=== PATIENT | male | born 1960 | race Hispanic/Latino ===

== ENCOUNTER 2025-05-14 12:25 | Emergency (ER) | payer MEDICARE, OTHER ==
[2025-05-14 13:18] LABS: Bacteria/HPF None Seen HPF (None Seen); CAUTI Indications for Culture Pelvic or flank pain; Glucose, Urine (Dipstick) Normal (Negative); Leukocyte Negative Leu/uL (Negative); Protein, Urine (Dipstick) Negative (Neg-Trace); RBC/HPF 0-3 HPF (0-3); Specific Gravity, Urine 1.015 (1.002-1.036); WBC/HPF 0-3 HPF (0-3)
[2025-05-14 13:19] LABS: Urine Culture Reflex No No
[2025-05-14 13:29] LABS: #Basophils 0.03 10x3/uL (0.0-0.2); #Eosinophils 0.13 10x3/uL (0.0-0.7); #Monocytes 0.96 10x3/uL (0.11-0.59); #Neutrophils 9.56 10x3/uL (1.40-6.50); %Basophils 0.2 % (0.0-1.0); %Eosinophils 1.0 % (0.0-10.0); %Lymphocytes 16.2 % (21.0-51.0); %Monocytes 7.5 % (0.0-10.0); %Neutrophils 74.6 % (42.0-75.0); Hematocrit 37.2 % (42.0-52.0); Hemoglobin 12.9 g/dL (14.0-18.0); Mean Corpuscular Hemoglobin 33.8 pg (27.0-31.0); Mean Corpuscular Volume 97.4 fL (78.0-98.0); Platelet Count 168 10x3/uL (130-400); Red Blood Cell (RBC) Count 3.82 mill/uL (4.70-6.10); White Blood Cell (WBC) Count 12.81 10x3/uL (4.8-10.8)
[2025-05-14 13:47] LABS: ALT (SGPT) 57 U/L (Less than 45); AST (SGOT) 45 U/L (11-34); Albumin 4.1 g/dL (3.1-4.5); Alkaline Phosphatase 81 U/L (40-110); Anion Gap 13 mmol/L (10-20); BUN (Urea Nitrogen) 16 mg/dL (8.4-25.7); Bilirubin, Total 1.2 mg/dL (0.3-1.2); Calc. Creatinine Clearance 0 mL/min (70-130); Calcium 8.9 mg/dL (7.8-10.44); Carbon Dioxide 21 mmol/L (23-31); Chloride 107 mmol/L (98-107); Globulin 3.7 g/dL (2.4-3.5); Glucose 125 mg/dL (80-115); Potassium 3.7 mmol/L (3.5-5.1); Sodium 137 mmol/L (136-145)
[2025-05-14] MEDS ORDERED: Ondansetron PF 4 MG/2 ML Vial ONE (14:44)
[2025-05-14] MEDS ORDERED: Iopamidol 370 76% 100 ML VIAL ONE (14:51)
== END 2025-05-14 16:35 | disposition home or self-care (01) ==
LOC: ERS 12:25
DX: K57.90 Diverticulosis of intestine, part unspecified, without perforation or abscess without bleeding (principal); K21.9 Gastro-esophageal reflux disease without esophagitis; I10 Essential (primary) hypertension; Z55.6 Problems related to health literacy; Z87.891 Personal history of nicotine dependence; Z79.899 Other long term (current) drug therapy
CPT/HCPCS: 74177; 80053; 81001; 83690; 85025; J2270; J2405; 36415; 96374; 96375; 96376; Q9967

== ENCOUNTER 2025-06-21 15:25 | Inpatient (IN) | payer MEDICARE, OTHER ==
[~2025-06-21 15:25] MED LIST: Iopamidol-370 76% 500 ML MDV (1 ML CHARGE) ONE
[2025-06-21 17:32] LABS: #Basophils 0.03 10x3/uL (0.0-0.2); #Eosinophils Less than 0.03 10x3/uL (0.0-0.7); #Monocytes 1.21 10x3/uL (0.11-0.59); #Neutrophils 15.38 10x3/uL (1.40-6.50); %Basophils 0.2 % (0.0-1.0); %Eosinophils 0.1 % (0.0-10.0); %Lymphocytes 11.2 % (21.0-51.0); %Monocytes 6.4 % (0.0-10.0); %Neutrophils 81.5 % (42.0-75.0); Hematocrit 41.4 % (42.0-52.0); Hemoglobin 14.4 g/dL (14.0-18.0); Mean Corpuscular Hemoglobin 33.0 pg (27.0-31.0); Mean Corpuscular Volume 94.7 fL (78.0-98.0); Platelet Count 157 10x3/uL (130-400); Red Blood Cell (RBC) Count 4.37 mill/uL (4.70-6.10); White Blood Cell (WBC) Count 18.86 10x3/uL (4.8-10.8)
[2025-06-21] MEDS ORDERED: Ondansetron PF 4 MG/2 ML Vial ONE ×2 (17:34→19:36)
[2025-06-21 17:45] LABS: ALT (SGPT) 71 U/L (Less than 45); AST (SGOT) 47 U/L (11-34); Albumin 4.2 g/dL (3.1-4.5); Alkaline Phosphatase 73 U/L (40-110); Anion Gap 16 mmol/L (10-20); BUN (Urea Nitrogen) 24 mg/dL (8.4-25.7); Bilirubin, Total 1.8 mg/dL (0.3-1.2); Calc. Creatinine Clearance 0 mL/min (70-130); Calcium 9.5 mg/dL (7.8-10.44); Carbon Dioxide 18 mmol/L (23-31); Chloride 105 mmol/L (98-107); Globulin 3.8 g/dL (2.4-3.5); Glucose 119 mg/dL (80-115); Lipase 40 U/L (8-78); Potassium 3.6 mmol/L (3.5-5.1); Sodium 135 mmol/L (136-145)
[2025-06-21] MEDS ORDERED: HYDROmorphone 0.5 MG/0.5 ML SYRINGE ONE (19:36)
[2025-06-21] MEDS ORDERED: Ketorolac Tromethamine 30 MG (1 mL) VIAL ONE (19:36)
[2025-06-21 19:37] LABS: Bacteria/HPF None Seen HPF (None Seen); CAUTI Indications for Culture Pelvic or flank pain; Glucose, Urine (Dipstick) Normal (Negative); Leukocyte Negative Leu/uL (Negative); Protein, Urine (Dipstick) 20 mg/dL (Neg-Trace); RBC/HPF 0-3 HPF (0-3); WBC/HPF 0-3 HPF (0-3)
[2025-06-21 19:50] LABS: Specific Gravity, Urine Greater than 1.050 (1.002-1.036)
[2025-06-21 19:52] LABS: Urine Culture Reflex No No
[2025-06-21] MEDS ORDERED: Ondansetron PF 4 MG/2 ML Vial IVP PRN (22:34)
[2025-06-21] MEDS ORDERED: Calcium Carbonate 500 MG ChewTAB PO PRN (22:34)
[2025-06-21 23:47] VITALS: BMI 26.3
[2025-06-21] MEDS: Acetaminophen 325 MG TAB PO PRN (23:58)
[2025-06-22 05:34] LABS: #Basophils Less than 0.03 10x3/uL (0.0-0.2); #Eosinophils Less than 0.03 10x3/uL (0.0-0.7); #Monocytes 0.60 10x3/uL (0.11-0.59); #Neutrophils 12.00 10x3/uL (1.40-6.50); %Basophils 0.1 % (0.0-1.0); %Eosinophils 0.1 % (0.0-10.0); %Lymphocytes 8.0 % (21.0-51.0); %Monocytes 4.3 % (0.0-10.0); %Neutrophils 86.9 % (42.0-75.0); Hematocrit 34.9 % (42.0-52.0); Hemoglobin 12.2 g/dL (14.0-18.0); Mean Corpuscular Hemoglobin 33.2 pg (27.0-31.0); Mean Corpuscular Volume 94.8 fL (78.0-98.0); Platelet Count 125 10x3/uL (130-400); Red Blood Cell (RBC) Count 3.68 mill/uL (4.70-6.10); White Blood Cell (WBC) Count 13.81 10x3/uL (4.8-10.8)
[2025-06-22 05:52] LABS: ALT (SGPT) 45 U/L (Less than 45); AST (SGOT) 30 U/L (11-34); Albumin 3.2 g/dL (3.1-4.5); Alkaline Phosphatase 55 U/L (40-110); Anion Gap 12 mmol/L (10-20); BUN (Urea Nitrogen) 22 mg/dL (8.4-25.7); Bilirubin, Total 2.2 mg/dL (0.3-1.2); Calc. Creatinine Clearance 36 mL/min (70-130); Calcium 8.3 mg/dL (7.8-10.44); Carbon Dioxide 20 mmol/L (23-31); Chloride 112 mmol/L (98-107); Globulin 2.6 g/dL (2.4-3.5); Glucose 96 mg/dL (80-115); Potassium 3.5 mmol/L (3.5-5.1); Sodium 140 mmol/L (136-145)
[2025-06-22 06:03] LABS: Platelet Adequacy Comment Platelets Decreased; RBC Morphology Within Normal Limits
[2025-06-22 09:03] LABS: INR-International Normal Ratio 1.1; Prothrombin Time 14.3 sec (12.0-14.7)
[2025-06-22 09:04] LABS: PTT 35.9 sec (22.9-36.1)
[2025-06-22] MEDS: PNEUMOC 20-VAL CONJ-DIP CRM/PF 0.5 ML SYRINGE IM ONE (12:15)
[2025-06-22] MEDS ORDERED: PROPOFOL 20 ML ONE (13:59)
[2025-06-22] MEDS ORDERED: Glycopyrrolate 0.2 MG/ML 5 ML SYRINGE ONE (14:00)
[2025-06-22] MEDS ORDERED: Ondansetron PF 4 MG/2 ML Vial ONE (14:00)
[2025-06-22] MEDS ORDERED: Lidocaine 1% PF 5 ML VIAL ONE (14:00)
[2025-06-22] MEDS ORDERED: PHENYLEPHRINE-NS 100 MCG/ML 10 ML SYRINGE ONE (14:17)
[2025-06-22 17:46] LABS: HIV (1/2) Antibody/Antigen NONREACTIVE (NonReactive); HIV 1/2 INDEX 0.04 S/CO (<1.00); Hep A IgM AB NONREACTIVE (NonReactive); Hep A IgM S/CO 0.81 S/CO (0-0.79); Hep B Core IgM Index 0.12 S/CO (0-0.79); Hep B Surf Ag NONREACTIVE S/CO (NonReactive); Hep C IgG Ab Reflex HepC Qnt S/CO (NonReactive); Hep C Index 17.20 S/CO (0-0.79)
[2025-06-22 21:09] LABS: Cocaine Metabolite Screen PRELIM POSITIVE (Negative); THC/Cannabinoid Screen Negative (Negative); Tricyclic Screen Negative (Negative)
[2025-06-23 05:31] LABS: #Basophils Less than 0.03 10x3/uL (0.0-0.2); #Eosinophils Less than 0.03 10x3/uL (0.0-0.7); #Monocytes 0.52 10x3/uL (0.11-0.59); #Neutrophils 10.89 10x3/uL (1.40-6.50); %Basophils 0.1 % (0.0-1.0); %Eosinophils 0.0 % (0.0-10.0); %Lymphocytes 5.6 % (21.0-51.0); %Monocytes 4.3 % (0.0-10.0); %Neutrophils 88.9 % (42.0-75.0); Hematocrit 33.3 % (42.0-52.0); Hemoglobin 11.3 g/dL (14.0-18.0); Mean Corpuscular Hemoglobin 33.0 pg (27.0-31.0); Mean Corpuscular Volume 97.4 fL (78.0-98.0); Platelet Count 122 10x3/uL (130-400); Red Blood Cell (RBC) Count 3.42 mill/uL (4.70-6.10); White Blood Cell (WBC) Count 12.23 10x3/uL (4.8-10.8)
[2025-06-23 05:50] LABS: ALT (SGPT) 34 U/L (Less than 45); AST (SGOT) 28 U/L (11-34); Albumin 2.8 g/dL (3.1-4.5); Alkaline Phosphatase 54 U/L (40-110); Anion Gap 11 mmol/L (10-20); BUN (Urea Nitrogen) 19 mg/dL (8.4-25.7); Bilirubin, Total 1.1 mg/dL (0.3-1.2); Calc. Creatinine Clearance 44 mL/min (70-130); Calcium 8.5 mg/dL (7.8-10.44); Carbon Dioxide 20 mmol/L (23-31); Chloride 110 mmol/L (98-107); Globulin 3.2 g/dL (2.4-3.5); Glucose 132 mg/dL (80-115); Magnesium 1.9 mg/dL (1.6-2.6); Potassium 3.8 mmol/L (3.5-5.1); Sodium 137 mmol/L (136-145)
[2025-06-23] MEDS ORDERED: Sodium Bicarbonate 2.5 MEQ/5 ML SDV ONE (09:11)
[2025-06-23] MEDS ORDERED: Lidocaine 1% PF 5 ML VIAL ONE (09:11)
[2025-06-24 05:37] LABS: #Basophils Less than 0.03 10x3/uL (0.0-0.2); #Eosinophils 0.06 10x3/uL (0.0-0.7); #Monocytes 0.60 10x3/uL (0.11-0.59); #Neutrophils 6.32 10x3/uL (1.40-6.50); %Basophils 0.1 % (0.0-1.0); %Eosinophils 0.7 % (0.0-10.0); %Lymphocytes 18.8 % (21.0-51.0); %Monocytes 6.9 % (0.0-10.0); %Neutrophils 73.0 % (42.0-75.0); Hematocrit 32.0 % (42.0-52.0); Hemoglobin 10.7 g/dL (14.0-18.0); Mean Corpuscular Hemoglobin 32.5 pg (27.0-31.0); Mean Corpuscular Volume 97.3 fL (78.0-98.0); Platelet Count 141 10x3/uL (130-400); Red Blood Cell (RBC) Count 3.29 mill/uL (4.70-6.10); White Blood Cell (WBC) Count 8.66 10x3/uL (4.8-10.8)
[2025-06-24 05:40] LABS: ALT (SGPT) 32 U/L (Less than 45); AST (SGOT) 34 U/L (11-34); Albumin 2.5 g/dL (3.1-4.5); Alkaline Phosphatase 46 U/L (40-110); Anion Gap 9 mmol/L (10-20); BUN (Urea Nitrogen) 20 mg/dL (8.4-25.7); Bilirubin, Total 0.6 mg/dL (0.3-1.2); Calc. Creatinine Clearance 50 mL/min (70-130); Calcium 8.2 mg/dL (7.8-10.44); Carbon Dioxide 22 mmol/L (23-31); Chloride 114 mmol/L (98-107); Globulin 2.8 g/dL (2.4-3.5); Glucose 109 mg/dL (80-115); Potassium 3.6 mmol/L (3.5-5.1); Sodium 141 mmol/L (136-145)
[2025-06-25 05:18] LABS: #Basophils Less than 0.03 10x3/uL (0.0-0.2); #Eosinophils 0.26 10x3/uL (0.0-0.7); #Monocytes 0.42 10x3/uL (0.11-0.59); #Neutrophils 3.20 10x3/uL (1.40-6.50); %Basophils 0.3 % (0.0-1.0); %Eosinophils 4.3 % (0.0-10.0); %Lymphocytes 35.1 % (21.0-51.0); %Monocytes 6.9 % (0.0-10.0); %Neutrophils 52.7 % (42.0-75.0); Hematocrit 32.5 % (42.0-52.0); Hemoglobin 11.3 g/dL (14.0-18.0); Mean Corpuscular Hemoglobin 33.7 pg (27.0-31.0); Mean Corpuscular Volume 97.0 fL (78.0-98.0); Platelet Count 168 10x3/uL (130-400); Red Blood Cell (RBC) Count 3.35 mill/uL (4.70-6.10); White Blood Cell (WBC) Count 6.07 10x3/uL (4.8-10.8)
[2025-06-25 05:33] LABS: ALT (SGPT) 35 U/L (Less than 45); AST (SGOT) 38 U/L (11-34); Albumin 2.4 g/dL (3.1-4.5); Alkaline Phosphatase 43 U/L (40-110); Anion Gap 8 mmol/L (10-20); BUN (Urea Nitrogen) 14 mg/dL (8.4-25.7); Bilirubin, Total 0.5 mg/dL (0.3-1.2); Calc. Creatinine Clearance 57 mL/min (70-130); Calcium 8.2 mg/dL (7.8-10.44); Carbon Dioxide 22 mmol/L (23-31); Chloride 113 mmol/L (98-107); Globulin 2.8 g/dL (2.4-3.5); Glucose 87 mg/dL (80-115); Potassium 3.3 mmol/L (3.5-5.1); Sodium 140 mmol/L (136-145)
[2025-06-25] MEDS ORDERED: Electrolyte Replacement Protocol 1 EACH FS SCH (12:15)
[2025-06-25 13:37] LABS: HCV RNA, log10 6.137 (.); Hep C PCR-Quant 1370000 IU/mL (.)
[2025-06-25] MEDS: Ketorolac Tromethamine 30 MG (1 mL) VIAL IVP PRN (14:05)
[2025-06-26 05:15] LABS: Anion Gap 6 mmol/L (10-20); BUN (Urea Nitrogen) 13 mg/dL (8.4-25.7); Calc. Creatinine Clearance 51 mL/min (70-130); Calcium 8.8 mg/dL (7.8-10.44); Carbon Dioxide 24 mmol/L (23-31); Chloride 113 mmol/L (98-107); Glucose 95 mg/dL (80-115); Potassium 3.9 mmol/L (3.5-5.1); Sodium 139 mmol/L (136-145)
[2025-06-26] MEDS: HYDROcodone/Acetaminophen 5/325 mg Tablet PO PRN (11:52)
[2025-06-26] MEDS: Cyclobenzaprine 10 MG TAB PO PRN (18:52)
[2025-06-27 06:47] LABS: Anion Gap 9 mmol/L (10-20); BUN (Urea Nitrogen) 14 mg/dL (8.4-25.7); Calc. Creatinine Clearance 55 mL/min (70-130); Calcium 8.9 mg/dL (7.8-10.44); Carbon Dioxide 28 mmol/L (23-31); Chloride 106 mmol/L (98-107); Glucose 86 mg/dL (80-115); Potassium 3.6 mmol/L (3.5-5.1); Sodium 139 mmol/L (136-145)
[2025-06-28 04:58] LABS: Anion Gap 10 mmol/L (10-20); BUN (Urea Nitrogen) 16 mg/dL (8.4-25.7); Calc. Creatinine Clearance 55 mL/min (70-130); Calcium 9.0 mg/dL (7.8-10.44); Carbon Dioxide 26 mmol/L (23-31); Chloride 106 mmol/L (98-107); Glucose 87 mg/dL (80-115); Potassium 3.8 mmol/L (3.5-5.1); Sodium 138 mmol/L (136-145)
[2025-06-28] MEDS ORDERED: Iopamidol 370 76% 100 ML VIAL ONE (14:52)
[2025-06-28] MEDS ORDERED: GASTROGRAFIN 30 ML BOT ONE (14:52)
[2025-06-28 17:13] VITALS: BP 177/94; TEMP 97.2
[2025-06-28 17:18] VITALS: BMI 26.3
== END 2025-06-28 18:41 | disposition home or self-care (01) | DRG 854 ==
LOC: SUATTDRO 15:25 → ERS 15:25 → MSONC 22:34
PROVIDERS: ADMIT Internal Medicine; ATTEND Family Medicine
PROC: 3E03329 Introduction of Other Anti-infective into Peripheral Vein, Percutaneous Approach (ICD-10-PCS; 2025-06-21)
PROC: 0T778DZ Dilation of Left Ureter with Intraluminal Device, Via Natural or Artificial Opening Endoscopic (ICD-10-PCS; principal; 2025-06-22)
PROC: BT1F1ZZ Fluoroscopy of Left Kidney, Ureter and Bladder using Low Osmolar Contrast (ICD-10-PCS; 2025-06-22)
PROC: 0W9G30Z Drainage of Peritoneal Cavity with Drainage Device, Percutaneous Approach (ICD-10-PCS; 2025-06-23)
DX: A41.9 Sepsis, unspecified organism (principal); K57.20 Diverticulitis of large intestine with perforation and abscess without bleeding; N13.6 Pyonephrosis; K21.9 Gastro-esophageal reflux disease without esophagitis; N20.0 Calculus of kidney; G43.909 Migraine, unspecified, not intractable, without status migrainosus; I12.9 Hypertensive chronic kidney disease with stage 1 through stage 4 chronic kidney disease, or unspecified chronic kidney disease; F41.9 Anxiety disorder, unspecified; R00.1 Bradycardia, unspecified; N18.30 Chronic kidney disease, stage 3 unspecified; B18.2 Chronic viral hepatitis C; F12.10 Cannabis abuse, uncomplicated; N40.0 Benign prostatic hyperplasia without lower urinary tract symptoms; N28.1 Cyst of kidney, acquired; Z98.890 Other specified postprocedural states; Z87.891 Personal history of nicotine dependence; Z79.899 Other long term (current) drug therapy
CPT/HCPCS: 36415; 49406; 74177; 74420; 77002; 80048; 80053; 80074; 80306; 81001; 83605; 83690; 83735; 84443; 85025; 85610; 85730; 87040; 87070; 87077; 87086; 87205; 87389; 87522; 93005; 93010; 93306; 96361; 96365; 96375; 96376; C1729; C1769; C2617; J1100; J1171; J1885; J2250; J2270; J2272; J2405; J2543; J2704; J3010; J7030; Q9963; Q9967

== ENCOUNTER 2025-08-16 12:58 | Outpatient (CLI) | payer MEDICARE, OTHER | END 2025-08-16 12:59 | disposition home or self-care (01) | LOC: ULT 12:58 | PROVIDERS: ATTEND Urology | DX: N20.0 Calculus of kidney (principal); R39.198 Other difficulties with micturition; N32.89 Other specified disorders of bladder | CPT/HCPCS: 76770 ==

== ENCOUNTER 2025-09-13 08:52 | Outpatient (CLI) | payer MEDICARE, OTHER | END 2025-09-13 08:53 | disposition home or self-care (01) | LOC: ULT 08:52 | PROVIDERS: ATTEND Internal Medicine Gastroenterology | DX: K21.9 Gastro-esophageal reflux disease without esophagitis (principal); K22.70 Barrett's esophagus without dysplasia; K57.92 Diverticulitis of intestine, part unspecified, without perforation or abscess without bleeding; R76.89 Other specified abnormal immunological findings in serum | CPT/HCPCS: 76705 ==

== ENCOUNTER 2025-10-01 13:14 | Inpatient (IN) | payer MEDICARE, OTHER ==
[2025-10-01 14:07] LABS: #Basophils Less than 0.03 10x3/uL (0.0-0.2); #Eosinophils 0.17 10x3/uL (0.0-0.7); #Monocytes 0.31 10x3/uL (0.11-0.59); #Neutrophils 2.88 10x3/uL (1.40-6.50); %Basophils 0.2 % (0.0-1.0); %Eosinophils 2.9 % (0.0-10.0); %Lymphocytes 41.5 % (21.0-51.0); %Monocytes 5.4 % (0.0-10.0); %Neutrophils 49.7 % (42.0-75.0); Hematocrit 41.6 % (42.0-52.0); Hemoglobin 15.0 g/dL (14.0-18.0); Mean Corpuscular Hemoglobin 33.0 pg (27.0-31.0); Mean Corpuscular Volume 91.4 fL (78.0-98.0); Platelet Count 196 10x3/uL (130-400); Red Blood Cell (RBC) Count 4.55 mill/uL (4.70-6.10); White Blood Cell (WBC) Count 5.79 10x3/uL (4.8-10.8)
[2025-10-01 14:09] LABS: ALT (SGPT) 78 U/L (Less than 45); AST (SGOT) 69 U/L (11-34); Albumin 4.3 g/dL (3.1-4.5); Alkaline Phosphatase 82 U/L (40-110); Anion Gap 13 mmol/L (10-20); BUN (Urea Nitrogen) 16 mg/dL (8.4-25.7); Bilirubin, Total 0.6 mg/dL (0.3-1.2); Calc. Creatinine Clearance 0 mL/min (70-130); Calcium 9.4 mg/dL (7.8-10.44); Carbon Dioxide 22 mmol/L (23-31); Chloride 109 mmol/L (98-107); Globulin 3.0 g/dL (2.4-3.5); Glucose 107 mg/dL (80-115); Potassium 3.4 mmol/L (3.5-5.1); Sodium 141 mmol/L (136-145)
[2025-10-01] MEDS ORDERED: Ketorolac Tromethamine 30 MG (1 mL) VIAL ONE (14:28)
[2025-10-01] MEDS ORDERED: Iopamidol 370 76% 100 ML VIAL ONE (14:50)
[2025-10-01] MEDS ORDERED: Calcium Carbonate 500 MG ChewTAB PO PRN (17:39)
[2025-10-01] MEDS ORDERED: Ondansetron PF 4 MG/2 ML Vial IVP PRN (17:39)
[2025-10-01] MEDS ORDERED: Electrolyte Replacement Protocol 1 EACH FS SCH (17:45)
[2025-10-01] MEDS ORDERED: PHOS-NAK 1 PKT PACK PO PRN (18:00)
[2025-10-01] MEDS ORDERED: Potassium Chloride 20 MEQ in Premix 1 BAG IVPB PRN (18:00)
[2025-10-01] MEDS ORDERED: Magnesium Sulfate In Water 4 GM in Premix 1 BAG IVPB PRN (18:00)
[2025-10-01] MEDS: Famotidine/PF 20 mg/2ml Vial SLOW IVP SCH (20:11)
[2025-10-01 22:07] VITALS: BMI 26.5
[2025-10-01] MEDS: Cyclobenzaprine 10 MG TAB PO PRN (22:37)
[2025-10-02 07:52] LABS: #Basophils 0.03 10x3/uL (0.0-0.2); #Eosinophils 0.06 10x3/uL (0.0-0.7); #Monocytes 0.67 10x3/uL (0.11-0.59); #Neutrophils 10.06 10x3/uL (1.40-6.50); %Basophils 0.2 % (0.0-1.0); %Eosinophils 0.5 % (0.0-10.0); %Lymphocytes 17.0 % (21.0-51.0); %Monocytes 5.1 % (0.0-10.0); %Neutrophils 77.0 % (42.0-75.0); Hematocrit 38.7 % (42.0-52.0); Hemoglobin 12.8 g/dL (14.0-18.0); Mean Corpuscular Hemoglobin 32.1 pg (27.0-31.0); Mean Corpuscular Volume 97.0 fL (78.0-98.0); Platelet Count 147 10x3/uL (130-400); Red Blood Cell (RBC) Count 3.99 mill/uL (4.70-6.10); White Blood Cell (WBC) Count 13.07 10x3/uL (4.8-10.8)
[2025-10-02 08:19] LABS: ALT (SGPT) 59 U/L (Less than 45); AST (SGOT) 40 U/L (11-34); Albumin 3.6 g/dL (3.1-4.5); Alkaline Phosphatase 62 U/L (40-110); Anion Gap 12 mmol/L (10-20); BUN (Urea Nitrogen) 13 mg/dL (8.4-25.7); Bilirubin, Total 1.5 mg/dL (0.3-1.2); Calc. Creatinine Clearance 49 mL/min (70-130); Calcium 8.6 mg/dL (7.8-10.44); Carbon Dioxide 24 mmol/L (23-31); Chloride 108 mmol/L (98-107); Globulin 2.7 g/dL (2.4-3.5); Glucose 99 mg/dL (80-115); Potassium 3.7 mmol/L (3.5-5.1); Sodium 140 mmol/L (136-145)
[2025-10-02] MEDS: Enoxaparin 40 MG (0.4 mL) SYRINGE SC SCH (08:38)
[2025-10-02] MEDS: PNEUMOC 20-VAL CONJ-DIP CRM/PF 0.5 ML SYRINGE IM ONE (08:39)
[2025-10-02] MEDS ORDERED: TOPIRAMATE 50 MG PO SCH (09:00)
[2025-10-02] MEDS: Pantoprazole 40 MG VIAL IVP SCH (11:09)
[2025-10-03 07:32] LABS: Hematocrit 38.2 % (42.0-52.0); Hemoglobin 13.1 g/dL (14.0-18.0); Mean Corpuscular Hemoglobin 32.2 pg (27.0-31.0); Mean Corpuscular Volume 93.9 fL (78.0-98.0); Platelet Count 136 10x3/uL (130-400); Red Blood Cell (RBC) Count 4.07 mill/uL (4.70-6.10); White Blood Cell (WBC) Count 10.84 10x3/uL (4.8-10.8)
[2025-10-03 07:37] LABS: #Basophils 0.03 10x3/uL (0.0-0.2); #Eosinophils 0.06 10x3/uL (0.0-0.7); #Monocytes 0.75 10x3/uL (0.11-0.59); #Neutrophils 8.38 10x3/uL (1.40-6.50); %Basophils 0.3 % (0.0-1.0); %Eosinophils 0.5 % (0.0-10.0); %Lymphocytes 15.3 % (21.0-51.0); %Monocytes 6.8 % (0.0-10.0); %Neutrophils 76.6 % (42.0-75.0); Hematocrit 38.1 % (42.0-52.0); Hemoglobin 13.2 g/dL (14.0-18.0); Mean Corpuscular Hemoglobin 32.5 pg (27.0-31.0); Mean Corpuscular Volume 93.8 fL (78.0-98.0); Platelet Count 126 10x3/uL (130-400); Red Blood Cell (RBC) Count 4.06 mill/uL (4.70-6.10); White Blood Cell (WBC) Count 10.95 10x3/uL (4.8-10.8)
[2025-10-03 07:45] LABS: ALT (SGPT) 44 U/L (Less than 45); AST (SGOT) 31 U/L (11-34); Albumin 3.5 g/dL (3.1-4.5); Alkaline Phosphatase 55 U/L (40-110); Anion Gap 12 mmol/L (10-20); BUN (Urea Nitrogen) 10 mg/dL (8.4-25.7); Bilirubin, Total 1.4 mg/dL (0.3-1.2); Calc. Creatinine Clearance 50 mL/min (70-130); Calcium 8.7 mg/dL (7.8-10.44); Carbon Dioxide 21 mmol/L (23-31); Chloride 107 mmol/L (98-107); Globulin 3.1 g/dL (2.4-3.5); Glucose 96 mg/dL (80-115); Potassium 3.5 mmol/L (3.5-5.1); Sodium 136 mmol/L (136-145)
[2025-10-03] MEDS: Acetaminophen 325 MG TAB PO PRN (08:37)
[2025-10-03] MEDS: Bisacodyl 10 MG SUPP PR SCH (11:51)
[2025-10-04 05:29] LABS: #Basophils Less than 0.03 10x3/uL (0.0-0.2); #Eosinophils 0.20 10x3/uL (0.0-0.7); #Monocytes 0.68 10x3/uL (0.11-0.59); #Neutrophils 5.54 10x3/uL (1.40-6.50); %Basophils 0.1 % (0.0-1.0); %Eosinophils 2.5 % (0.0-10.0); %Lymphocytes 20.6 % (21.0-51.0); %Monocytes 8.4 % (0.0-10.0); %Neutrophils 68.2 % (42.0-75.0); Hematocrit 34.5 % (42.0-52.0); Hemoglobin 12.0 g/dL (14.0-18.0); Mean Corpuscular Hemoglobin 32.6 pg (27.0-31.0); Mean Corpuscular Volume 93.8 fL (78.0-98.0); Platelet Count 127 10x3/uL (130-400); Red Blood Cell (RBC) Count 3.68 mill/uL (4.70-6.10); White Blood Cell (WBC) Count 8.12 10x3/uL (4.8-10.8)
[2025-10-04 05:59] LABS: ALT (SGPT) 36 U/L (Less than 45); AST (SGOT) 31 U/L (11-34); Albumin 3.2 g/dL (3.1-4.5); Alkaline Phosphatase 47 U/L (40-110); Anion Gap 2 mmol/L (10-20); BUN (Urea Nitrogen) 9 mg/dL (8.4-25.7); Bilirubin, Total 1.0 mg/dL (0.3-1.2); Calc. Creatinine Clearance 53 mL/min (70-130); Calcium 8.6 mg/dL (7.8-10.44); Carbon Dioxide 23 mmol/L (23-31); Chloride 112 mmol/L (98-107); Globulin 3.1 g/dL (2.4-3.5); Glucose 97 mg/dL (80-115); Potassium 3.6 mmol/L (3.5-5.1); Sodium 133 mmol/L (136-145)
[2025-10-04] MEDS ORDERED: Iopamidol-370 76% 500 ML MDV (1 ML CHARGE) ONE (09:02)
[2025-10-05 05:44] LABS: #Basophils Less than 0.03 10x3/uL (0.0-0.2); #Eosinophils 0.30 10x3/uL (0.0-0.7); #Monocytes 0.48 10x3/uL (0.11-0.59); #Neutrophils 2.73 10x3/uL (1.40-6.50); %Basophils 0.2 % (0.0-1.0); %Eosinophils 6.0 % (0.0-10.0); %Lymphocytes 28.9 % (21.0-51.0); %Monocytes 9.6 % (0.0-10.0); %Neutrophils 54.9 % (42.0-75.0); Hematocrit 33.4 % (42.0-52.0); Hemoglobin 11.3 g/dL (14.0-18.0); Mean Corpuscular Hemoglobin 32.4 pg (27.0-31.0); Mean Corpuscular Volume 95.7 fL (78.0-98.0); Platelet Count 122 10x3/uL (130-400); Red Blood Cell (RBC) Count 3.49 mill/uL (4.70-6.10); White Blood Cell (WBC) Count 4.98 10x3/uL (4.8-10.8)
[2025-10-05 05:57] LABS: ALT (SGPT) 36 U/L (Less than 45); AST (SGOT) 35 U/L (11-34); Albumin 3.0 g/dL (3.1-4.5); Alkaline Phosphatase 46 U/L (40-110); Anion Gap 8 mmol/L (10-20); BUN (Urea Nitrogen) 8 mg/dL (8.4-25.7); Bilirubin, Total 0.6 mg/dL (0.3-1.2); Calc. Creatinine Clearance 54 mL/min (70-130); Calcium 8.7 mg/dL (7.8-10.44); Carbon Dioxide 25 mmol/L (23-31); Chloride 111 mmol/L (98-107); Globulin 3.0 g/dL (2.4-3.5); Glucose 89 mg/dL (80-115); Potassium 3.6 mmol/L (3.5-5.1); Sodium 140 mmol/L (136-145)
[2025-10-05] MEDS: Cyclobenzaprine 10 MG TAB PO SCH (09:51)
[2025-10-06 05:32] LABS: #Basophils Less than 0.03 10x3/uL (0.0-0.2); #Eosinophils 0.32 10x3/uL (0.0-0.7); #Monocytes 0.54 10x3/uL (0.11-0.59); #Neutrophils 2.87 10x3/uL (1.40-6.50); %Basophils 0.4 % (0.0-1.0); %Eosinophils 6.0 % (0.0-10.0); %Lymphocytes 29.7 % (21.0-51.0); %Monocytes 10.1 % (0.0-10.0); %Neutrophils 53.4 % (42.0-75.0); Hematocrit 34.2 % (42.0-52.0); Hemoglobin 11.9 g/dL (14.0-18.0); Mean Corpuscular Hemoglobin 32.6 pg (27.0-31.0); Mean Corpuscular Volume 93.7 fL (78.0-98.0); Platelet Count 170 10x3/uL (130-400); Red Blood Cell (RBC) Count 3.65 mill/uL (4.70-6.10); White Blood Cell (WBC) Count 5.36 10x3/uL (4.8-10.8)
[2025-10-06 05:49] LABS: Anion Gap 8 mmol/L (10-20); BUN (Urea Nitrogen) 7 mg/dL (8.4-25.7); Calc. Creatinine Clearance 59 mL/min (70-130); Calcium 8.8 mg/dL (7.8-10.44); Carbon Dioxide 22 mmol/L (23-31); Chloride 113 mmol/L (98-107); Glucose 104 mg/dL (80-115); Potassium 3.3 mmol/L (3.5-5.1); Sodium 140 mmol/L (136-145)
[2025-10-06 10:08] VITALS: BMI 26.5
[2025-10-07 05:19] LABS: #Basophils 0.03 10x3/uL (0.0-0.2); #Eosinophils 0.34 10x3/uL (0.0-0.7); #Monocytes 0.47 10x3/uL (0.11-0.59); #Neutrophils 2.81 10x3/uL (1.40-6.50); %Basophils 0.6 % (0.0-1.0); %Eosinophils 6.5 % (0.0-10.0); %Lymphocytes 29.6 % (21.0-51.0); %Monocytes 9.0 % (0.0-10.0); %Neutrophils 53.9 % (42.0-75.0); Hematocrit 36.3 % (42.0-52.0); Hemoglobin 12.6 g/dL (14.0-18.0); Mean Corpuscular Hemoglobin 32.7 pg (27.0-31.0); Mean Corpuscular Volume 94.3 fL (78.0-98.0); Platelet Count 193 10x3/uL (130-400); Red Blood Cell (RBC) Count 3.85 mill/uL (4.70-6.10); White Blood Cell (WBC) Count 5.21 10x3/uL (4.8-10.8)
[2025-10-07 05:38] LABS: Anion Gap 11 mmol/L (10-20); BUN (Urea Nitrogen) 10 mg/dL (8.4-25.7); Calc. Creatinine Clearance 54 mL/min (70-130); Calcium 9.2 mg/dL (7.8-10.44); Carbon Dioxide 23 mmol/L (23-31); Chloride 110 mmol/L (98-107); Glucose 100 mg/dL (80-115); Potassium 3.8 mmol/L (3.5-5.1); Sodium 140 mmol/L (136-145)
[2025-10-07 07:55] VITALS: TEMP 97.6
[2025-10-07 11:36] VITALS: BP 123/79
== END 2025-10-07 13:00 | disposition home or self-care (01) | DRG 392 ==
LOC: ERS 13:14 → SUATTDRO 13:14 → T4-B 17:42
PROVIDERS: ADMIT Internal Medicine; ATTEND Internal Medicine
DX: K57.20 Diverticulitis of large intestine with perforation and abscess without bleeding (principal); E87.1 Hypo-osmolality and hyponatremia; I12.9 Hypertensive chronic kidney disease with stage 1 through stage 4 chronic kidney disease, or unspecified chronic kidney disease; N40.0 Benign prostatic hyperplasia without lower urinary tract symptoms; N18.30 Chronic kidney disease, stage 3 unspecified; N20.0 Calculus of kidney; K21.9 Gastro-esophageal reflux disease without esophagitis; Z98.890 Other specified postprocedural states; Z87.81 Personal history of (healed) traumatic fracture; Z87.891 Personal history of nicotine dependence
CPT/HCPCS: 36415; 74177; 80048; 80053; 83605; 84145; 84484; 85025; 85027; 93005; 96365; 96366; 96375; 96376; J1308; J1650; J1885; J2270; J2272; J2470; J2543; J7120; Q9967